=== PATIENT | female | born 2000 | race Caucasian/White ===

== ENCOUNTER → 2022-05-16 13:24 | Observation (INO) | END | disposition home or self-care (01) | LOC: 1NENULAB | PROVIDERS: ADMIT Advanced Practice Midwife; ATTEND Advanced Practice Midwife ==

== ENCOUNTER → 2022-05-23 14:20 | Observation (INO) | END | disposition home or self-care (01) | LOC: 1NENULAB | PROVIDERS: ADMIT Registered Nurse; ATTEND Registered Nurse ==

== ENCOUNTER 2022-06-04 07:43 | Inpatient (IN) ==
[2022-06-04] MEDS ORDERED: Famotidine 20 MG/2 ML VIAL IVP PRN (08:19)
[2022-06-04] MEDS ORDERED: Metoclopramide 10 MG/2 ML VIAL IVP PRN (08:19)
[2022-06-04] MEDS ORDERED: Naloxone 0.4 MG/ML INJ IVP PRN (08:19)
[2022-06-04] MEDS ORDERED: miSOPROStoL 25 MCG TABLET PO STA (08:29)
[2022-06-04 09:08] LABS: Basophils % 0.2 %; Eosinophils % 0.5 %; Hematocrit 31.7 % (35.3-44.9); Hemoglobin 10.2 g/dL (11.5-15.4); Immature Granulocytes % 1.1 % (0-4); Lymphocytes # 1.6 K/mcL (0.6-4.6); Lymphocytes % 18.9 %; Mean Corpuscular HGB Conc 32.2 g/dL (31.6-35.5); Mean Corpuscular Hemoglobin 25.4 pg (28.0-33.3); Mean Corpuscular Volume 78.9 fL (83.0-100.0); Mean Platelet Volume 11.6 fL (9.4-12.4); Monocytes # 0.5 K/mcL (0.0-1.3); Monocytes % 6.5 %; Platelet Count 203 K/mcL (140-400); Red Blood Count 4.02 M/mcL (3.82-4.97); Red Cell Distribution Width 13.5 % (11.5-14.5); Segmented Neutrophils % 72.8 %; White Blood Count 8.3 K/mcL (4.3-11.1)
[2022-06-04] MEDS: *HR* Nalbuphine 10 MG/ML AMPUL IV PRN ×2 (10:12→12:14)
[2022-06-04] MEDS ORDERED: EPHEDrine 50 MG/ML VIAL IVP PRN (10:50)
[2022-06-04] MEDS ORDERED: miSOPROStoL 25 MCG TABLET PO ONE (13:45)
[2022-06-04] MEDS: Ringers Solution, Lactated 1,000 ML IVC SCH ×2 (14:41→23:56)
[2022-06-04 14:59] LABS: Amphetamine Screen,Urine Negative ng/mL (Cutoff=1000); Barbiturate Screen,Urine Negative ng/mL (Cutoff=200); Benzodiazepines Screen,Urine Negative ng/mL (Cutoff=200); Cannabinoid Screen,Urine Negative ng/mL (Cutoff = 50); Cocaine Screen,Urine Negative ng/mL (Cutoff= 300); Opiate Screen,Urine Negative ng/mL (Cutoff=300); Phencyclidine Screen,Urine Negative ng/mL (Cutoff=25)
[2022-06-04] MEDS ORDERED: Ringers Solution, Lactated 1,000 ML ONE (15:44)
[2022-06-04] MEDS: Epidural Premix (fent/bupiv) 110 ML EP SCH (16:05)
[2022-06-04] MEDS: Ondansetron 4 MG/2 ML VIAL IVP PRN ×2 (16:55→23:52)
[2022-06-04] MEDS: Oxytocin 30 UNIT/503 ML BAG IVC SCH (17:51)
[2022-06-05] MEDS: Epidural Premix (fent/bupiv) 110 ML EP SCH ×2 (00:14→13:39)
[2022-06-05] MEDS: Ringers Solution, Lactated 1,000 ML IVC SCH ×2 (07:48→11:43)
[2022-06-05] MEDS: Oxytocin 30 UNIT/503 ML BAG IVC SCH (09:51)
[2022-06-05] MEDS ORDERED: Ropivacaine/PF 0.2% 20 ML VIAL ONE (11:18)
[2022-06-05] MEDS ORDERED: Ropivacaine/PF 0.5% 30 ML VIAL ONE (11:18)
[2022-06-05] MEDS ORDERED: Ibuprofen 600 MG TABLET PO ONE (16:15)
[2022-06-05] MEDS ORDERED: Lanolin 7 G OINT...G. TP PRN (16:25)
[2022-06-05] MEDS ORDERED: Ondansetron ODT 4 MG TAB.RAPDIS SL PRN (16:25)
[2022-06-05] MEDS ORDERED: Benzocaine/Menthol 56 GM AEROSOL SPRAY TP PRN (16:25)
[2022-06-05] MEDS ORDERED: Oxytocin 30 UNIT/503 ML BAG IVC SCH (16:30)
[2022-06-05] MEDS: Ibuprofen 600 MG TABLET PO SCH (18:59)
[2022-06-06] MEDS: Ibuprofen 600 MG TABLET PO SCH ×3 (00:17→15:02)
[2022-06-06] MEDS: Acetaminophen 325 MG TABLET PO SCH ×3 (04:16→15:02)
[2022-06-06 06:49] VITALS: BP 116/73; PULSE 85; TEMP 98.1; O2SAT 98
[2022-06-06] MEDS ORDERED: Prenatal Vit/FA 1 EACH TABLET PO SCH (09:00)
== END 2022-06-06 17:15 | disposition home or self-care (01) | DRG 560 ==
LOC: 1NENULAB 07:43 → 1NENUOBS 06-05 18:28
PROVIDERS: ADMIT Advanced Practice Midwife; ATTEND Advanced Practice Midwife